=== PATIENT | female | born 1965 | race Two or more races ===

== ENCOUNTER 2016-11-10 10:49 | Emergency (ER) | payer BC ==
[2016-11-10] MEDS ORDERED: NS 1,000 ML IV ONE ×2 (10:58)
--- NOTE | 2016-11-10 10:59 | EDPHY ---
H & P HPI/ROS: CHIEF COMPLAINT: N/V/D, abdominal cramping HISTORY OF PRESENT ILLNESS: The patient is a 50 y/o female arriving via EMS from [facility] urgent care complaining of abdominal pain, vomiting, and diarrhea onset acutely about 1 hour ago. She woke up around 04:00 this morning, 7 hours ago, and felt dizzy and weak so she eventually sought evaluation at urgent care. While in the waiting room she began vomiting profusely with associated diarrhea and abdominal cramping. She is unsure if she had a fever or blood in her stool or emesis. She received 12mg IV Phenergan from EMS en route here. She denies recent ill contacts or suspicion of eating bad food recently. She has a history of an ASD repair. REVIEW OF SYSTEMS: Constitutional: see HPI Eyes: No visual changes ENT: No sore throat Respiratory: No cough, no shortness of breath Cardiac: No chest pain Gastrointestinal: see HPI Genitourinary: No hematuria, no dysuria Musculoskeletal: No leg pain or swelling Skin: No rash Neurological: see HPI Psychiatric: No depression - Medical/Surgical History PMH: ASD repair. - Social History Additional Social History: Nonsmoker. Lives in [place]. Employed. - Physical Exam Exam: General Appearance: Alert, appears uncomfortable Eyes: Pupils equal and round, no conjunctival pallor or injection ENT, Mouth: Mucous membranes moist Neck: Normal inspection Respiratory: Lungs are clear to auscultation Cardiovascular: Regular rate and rhythm Gastrointestinal: Abdomen is soft with mild epigastric tenderness Neurological: A&O, nonfocal, normal gait Skin: Warm and dry, no rash Extremities: Nontender, no pedal edema Psychiatric: Mood and affect normal Constitutional: Initial Vital Signs Temperature (C) 36.9 C 11/10/16 10:58 Heart Rate 74 11/10/16 10:58 Respiratory Rate 14 11/10/16 10:58 Blood Pressure 103/51 L 11/10/16 10:58 O2 Sat (%) 94 11/10/16 10:58 O2 Delivery Mode Room Air Allergies/Adverse Reactions: No Known Allergies Allergy (Unverified 11/10/16 10:58) Home Medications: Medication Instructions Recorded Ondansetron Odt [Zofran Odt 4 mg 4 mg PO Q4 PRN #6 tab 11/10/16 (*)] Medical Decision Making ED Course/Re-evaluation: This is a healthy 50 y/o female complaining of malaise and weakness onset early this morning and a 1-hour history of acute onset nausea, vomiting, and diarrhea. She has mild epigastric tenderness and is afebrile. IV established by EMS. Labs drawn including CBC, CHEM. 2L IV NS administered. Additional Zofran ordered as needed for continued symptoms. 1245: Reassessed patient. She is feeling improved. Her abdomen is benign. Plan for PO challenge with ice chips. Patient tolerated PO without issue. She will be discharged with Zofran and standard vomiting and diarrhea care instructions. She's been referred to a PCP for follow up. Return precautions given. She is comfortable with this plan. Differential Diagnosis: Differential diagnosis includes though it is not limited to appendicitis, cholecystitis, diverticulitis, pyelonephritis, bowel perforation, small bowel obstruction. - Data Points Laboratory Results: Laboratory Results 11/10/16 11:00 11/10/16 11:00 Medications Given: Discontinued Medications Sodium Chloride (Ns) 1,000 mls @ 0 mls/hr IV ONCE ONE; Wide Open PRN Reason: Protocol Stop: 11/10/16 10:59 Last Admin: 11/10/16 11:14 Dose: 1,000 mls Sodium Chloride (Ns) 1,000 mls @ 0 mls/hr IV ONCE ONE; Wide Open PRN Reason: Protocol Stop: 11/10/16 10:59 Last Admin: 11/10/16 12:24 Dose: 1,000 mls Ondansetron HCl (Zofran) 4 mg IVP EDNOW ONE Stop: 11/10/16 11:28 Last Admin: 11/10/16 12:00 Dose: 4 mg Departure - Departure Disposition: Home, Routine, Self-Care Clinical Impression: Nausea vomiting and diarrhea, Weakness Condition: Good Instructions: Acute Nausea and Vomiting (ED), Acute Diarrhea (ED) Additional Instructions: 1. Use Zofran as prescribed when needed for nausea and vomiting. 2. Increase fluid intake. 3. Follow up with your primary care provider for unimproved symptoms over the next 2-3 days. 4. Return to the ED for any worsening of condition. Referrals: Patient,NotPresent [Unknown] - As per Instructions Giles Holliday MD [Medical Doctor] - As per Instructions Prescriptions: Ondansetron Odt [Zofran Odt 4 mg (*)] 4 mg PO Q4 PRN #6 tab PRN Reason: Nausea Report Scribed for: Shante España Report Scribed by: Verna Woodward Date of Report: 11/10/16 Time of Report: 10:53 Physician Review and Approval Statement: 11/10/16 10:53 Portions of this note were transcribed by a biomedical engineering director. I personally performed a history, physical exam, medical decision making, and confirmed accuracy of information the transcribed note.
[2016-11-10 11:10] LABS: % IMMATURE GRANULYOCYTES 0.3 % (0.0-1.1); ABSOLUTE IMMATURE GRANULOCYTES 0.02 10^3/uL (0.00-0.10); ADD DIFF? NO; ADD MORPH? NO; ADD SCAN? NO; ATYPICAL LYMPHOCYTE FLAG 10 (0-99); FRAGMENT RBC FLAG 0 (0-99); HEMATOCRIT 41.1 % (38.0-47.0); HEMOGLOBIN 14.2 g/dL (12.6-16.3); LEFT SHIFT FLG 0 (0-99); LIPEMIA HEMOLYSIS FLAG 90 (0-99); MEAN CELL HEMOGLOBIN 30.1 pg (27.9-34.1); MEAN CELL HEMOGLOBIN CONCENTR. 34.5 g/dL (32.4-36.7); MEAN CELL VOLUME 87.1 fL (81.5-99.8); MEAN PLATELET VOLUME 9.4 fL (8.7-11.7); PLATELET CLUMPS FLAG 0 (0-99); PLATELET COUNT 185 10^3/uL (150-400); RED BLOOD CELL COUNT 4.72 10^6/uL (4.18-5.33); RED CELL DISTRIBUTION WIDTH 11.6 % (11.5-15.2)
[2016-11-10 11:24] LABS: ANION GAP 10 mEq/L (8-16); CALCIUM 8.4 mg/dL (8.5-10.4); CARBON DIOXIDE 22 mEq/l (22-31); CHLORIDE 106 mEq/L (97-110); CREATININE 0.7 mg/dL (0.6-1.0); GLOMERULAR FILTRATION RATE > 60; GLUCOSE 126 mg/dL (70-100); POTASSIUM 3.9 mEq/L (3.5-5.2); SODIUM 138 mEq/L (134-144)
[2016-11-10] MEDS ORDERED: ONDANSETRON 4 MG/2 ML VIAL IVP ONE (11:27)
[2016-11-10 12:16] VITALS: RESP 18
[2016-11-10 13:39] VITALS: BP 96/56; PULSE 83; TEMP 97.3; O2SAT 94
== END 2016-11-10 13:40 | disposition home or self-care (01) ==
DX: R19.7 Diarrhea, unspecified (principal); R53.1 Weakness; R11.2 Nausea with vomiting, unspecified
CPT/HCPCS: 96374; J2405